=== PATIENT | female | born 1945 | race Caucasian/White ===

== ENCOUNTER → 2017-07-04 | Outpatient (CLI) | payer OTHER ==
[~2017-07-04] MED LIST: CENTRUM SILVER1 EAC3 PO; FLONASE ALLERG9.9 ML BOTH NARES; HYOSCYAMINE0.375 MG PO; IRON325 M1 PO; LIDODERM 5% P1 PATCH TD; NORVASC5 MG PO; PLAQUENIL200 MG PO; PREMARIN0.3 MG PO; TYLENOL REGULA325 MG PO; VITAMIN D31000 UNI2 PO; WELCHOL625 MG PO
== END | disposition home or self-care (01) ==
DX: M17.12 Unilateral primary osteoarthritis, left knee (principal); R26.2 Difficulty in walking, not elsewhere classified; M25.562 Pain in left knee; M25.662 Stiffness of left knee, not elsewhere classified; Z74.1 Need for assistance with personal care; M62.81 Muscle weakness (generalized)
CPT/HCPCS: 97161 GP; 97165 GO; 97530 GP; 97535 GO; G8978 GP; G8979 GP; G8980 GP; G8987 GO; G8988 GO; G8989 GO

== ENCOUNTER 2017-07-09 22:02 | Inpatient (IN) | payer OTHER ==
[~2017-07-09] VITALS: Ht 154.9 cm; Wt 86.5 kg
[2017-07-10 11:45] VITALS: BP 146/76
[2017-07-10 17:41] LABS: HEMATOCRIT 35.4 % (36.0-46.0); HEMOGLOBIN 11.9 G/DL (11.9-15.5); MCH 30.9 PG (29.0-34.0); MCHC 33.6 G/DL (30.0-36.0); MCV 91.9 FL (83-99); PLATELET COUNT 209 K/uL (156-360); RBC DIS.WIDTH-CV 12.7 % (11.8-14.6); RBC DIS.WIDTH-SD 42.3 % (39-53); RED BLOOD COUNT 3.85 M/uL (3.80-5.20); WHITE BLOOD COUNT 10.8 K/uL (4.1-10.2)
[2017-07-10 18:30] VITALS: BP 160/81
[2017-07-10 20:07] VITALS: BP 143/70
[2017-07-11 00:17] VITALS: BP 143/70
[2017-07-11 04:00] VITALS: BP 132/70
[2017-07-11 05:32] LABS: HEMATOCRIT 34.4 % (36.0-46.0); HEMOGLOBIN 11.3 G/DL (11.9-15.5); MCV 90.8 FL (83-99)
[2017-07-11 05:55] LABS: CHLORIDE 105 MEQ/L (99-109); GFR ESTIMATE (CALCULATED) 58 mL/min/; GLUCOSE 154 mg/dL (70-99); SODIUM 136 MEQ/L (136-147); UREA NITROGEN (BUN) 18 mg/dL (9-23)
[2017-07-11 12:13] VITALS: BP 149/70
[2017-07-11 15:46] VITALS: BP 158/70
[2017-07-11 20:29] VITALS: BP 154/72
[2017-07-12 00:18] VITALS: BP 163/75
[2017-07-12 04:34] VITALS: BP 176/81
[2017-07-12 06:20] LABS: HEMATOCRIT 33.2 % (36.0-46.0); HEMOGLOBIN 11.1 G/DL (11.9-15.5); MCV 90.5 FL (83-99)
[2017-07-12] MEDS ORDERED: DOCUSATE SODIU100 MG PO (08:32)
[2017-07-12] MEDS ORDERED: LOVENOX40 MG/0.4 SC (08:32)
[2017-07-12] MEDS ORDERED: ENDOCET 5-3251 EACH PO (08:32)
[2017-07-12] MEDS ORDERED: CELECOXIB200 MG PO (08:32)
[2017-07-12 08:43] VITALS: BP 144/69
== END 2017-07-12 15:50 | DRG 470 ==
LOC: ENRESERV 22:02 → 2SOUTH 07-10 11:11 → ENRESERV 07-10 14:21 → 2SOUTH 07-10 15:12 → 3WEST 07-10 18:23
PROVIDERS: Orthopaedic Surgery
PROC: 0SRD0J9 Replacement of Left Knee Joint with Synthetic Substitute, Cemented, Open Approach (ICD-10-PCS; principal; 2017-07-10)
DX: M17.12 Unilateral primary osteoarthritis, left knee (principal); M35.00 Sjogren syndrome, unspecified; I10 Essential (primary) hypertension; E78.5 Hyperlipidemia, unspecified; J30.9 Allergic rhinitis, unspecified; I73.00 Raynaud's syndrome without gangrene; N28.9 Disorder of kidney and ureter, unspecified; B02.9 Zoster without complications; Z90.710 Acquired absence of both cervix and uterus; M21.00 Valgus deformity, not elsewhere classified, unspecified site; Z85.828 Personal history of other malignant neoplasm of skin
CPT/HCPCS: 73560; 80048; 85014; 85018; 85027; C1713; J0131; J0690; J1100; J1170; J1650; J2405; J2795; J3010; J7030; J7050; S0020